=== PATIENT | male | born 1980 | race African-American/Black ===

== ENCOUNTER 2025-02-12 12:31 | Emergency (ER) | payer SELFPAY ==
[~2025-02-12] VITALS: Ht 177.8 cm; Wt 80.0 kg
[2025-02-12 12:35] VITALS: BP 123/84; PULSE 98; RESP 16; TEMP 36.8; O2SAT 99
[2025-02-12] MEDS ORDERED: ONDANSETRON HCL 4MG/2ML INJ IV STA (13:14)
[2025-02-12] MEDS ORDERED: MORPHINE SULFATE 4 MG/ML INJ (FOR IV/IM USE) IV STA (13:14)
[2025-02-12] MEDS ORDERED: PIPERACILLIN/TAZO 3.375G/50ML 50 ML IV SCH (14:00)
[2025-02-12] MEDS ORDERED: PIPERACILLIN/TAZO 3.375G/100ML 100 ML IV SCH (14:00)
== END 2025-02-12 14:05 | disposition left against medical advice (07) ==
LOC: ER 12:31
DX: T19.4XXA Foreign body in penis, initial encounter (principal); W44.8XXA Other foreign body entering into or through a natural orifice, initial encounter; Y93.89 Activity, other specified; Y92.89 Other specified places as the place of occurrence of the external cause; Y99.8 Other external cause status
CPT/HCPCS: 99283; J2543